=== PATIENT | male | born 1985 | race Caucasian/White ===

== ENCOUNTER 2017-01-23 01:23 | Inpatient (IN) | payer OTHER ==
[~2017-01-23] VITALS: Ht 185.4 cm; Wt 98.1 kg
[~2017-01-23 01:23] MED LIST: BACTRIM,SEPT1 TABLET PO; CEFDINIR300 MG PO; CLONIDINE HCL0.1 MG PO; DESYREL100 MG PO; NAPROSYN500 MG PO; NARCAN4 MG NS; PERCOCET 5/31 TABLET PO; SERTRALINE HCL50 MG PO
[2017-01-23 01:47] LABS: HEMATOCRIT 39.9 % (38.0-50.0); MCH 31.7 PG (29.0-34.0); MCHC 35.1 G/DL (30.0-36.0); MCV 90.3 FL (86-99); MEAN PLAT.VOLUME 10.1 uM^3 (9.0-12.4); PLATELET COUNT 246 K/uL (156-360); RBC DIS.WIDTH-CV 11.5 % (11.8-14.6); RBC DIS.WIDTH-SD 38.3 % (39-53); RED BLOOD COUNT 4.42 M/uL (4.00-5.50); WHITE BLOOD COUNT 7.1 K/uL (4.1-10.2)
[2017-01-23 01:56] LABS: CHLORIDE 103 mEq/L (99-109); POTASSIUM 3.6 mEq/L (3.7-5.4); SODIUM 138 mEq/L (136-147)
[2017-01-23 01:58] LABS: GLUCOSE 85 mg/dL (70-99)
[2017-01-23 01:59] LABS: ANION GAP 13 MEQ/L (2-14)
[2017-01-23 02:01] LABS: SERUM ETHYL ALCOHOL < 10 mg/dL
[2017-01-23 02:02] LABS: GFR ESTIMATE (CALCULATED) > 59 mL/min/
[2017-01-23 02:03] LABS: UREA NITROGEN (BUN) 21 mg/dL (9-23)
[2017-01-23 02:50] LABS: TOTAL BILIRUBIN 0.4 mg/dL (0.0-1.0)
[2017-01-23 02:51] LABS: ALKALINE PHOSPHATASE 51 IU/L (3-129)
[2017-01-23 02:54] LABS: DIRECT BILIRUBIN 0.3 mg/dL (0.0-0.3)
[2017-01-23 02:55] LABS: LIPASE 45 U/L (1.0-51.0)
[2017-01-23 03:09] LABS: SALICYLATE < 5.0 MG/DL (15-30)
[2017-01-23 05:08] VITALS: BP 123/64
[2017-01-23 05:13] VITALS: BP 123/64
[2017-01-23 07:33] VITALS: BP 100/53
[2017-01-23 15:40] VITALS: BP 147/71
[2017-01-23 19:34] VITALS: BP 126/74
[2017-01-23 22:14] VITALS: BP 95/59
[2017-01-24 07:42] VITALS: BP 93/50
[2017-01-24 15:34] VITALS: BP 109/72
[2017-01-25 07:55] VITALS: BP 113/54
[2017-01-25 15:43] VITALS: BP 107/61
[2017-01-26 07:35] VITALS: BP 113/55
[2017-01-26 10:46] VITALS: BP 116/63
[2017-01-26 15:51] VITALS: BP 102/55
[2017-01-27 07:55] VITALS: BP 101/66
[2017-01-27 16:12] VITALS: BP 105/63
[2017-01-28 08:13] VITALS: BP 116/55
[2017-01-28 13:09] VITALS: BP 117/57
[2017-01-28 15:48] VITALS: BP 109/57
[2017-01-29 07:48] VITALS: BP 103/55
[2017-01-29 15:42] VITALS: BP 102/56
[2017-01-30 07:52] VITALS: BP 108/60
[2017-01-30 15:59] VITALS: BP 125/61
[2017-01-31 07:44] VITALS: BP 117/59
[2017-01-31] MEDS ORDERED: SERTRALINE HCL50 MG PO (08:59)
[2017-01-31] MEDS ORDERED: BUSPAR10 MG PO (08:59)
== END 2017-01-31 11:03 | disposition other institution (70) | DRG 885 ==
LOC: EME 01:23 → 1WEST 04:41 → EDOF 04:41 → 1WEST 05:03
DX: F33.2 Major depressive disorder, recurrent severe without psychotic features (principal); R45.851 Suicidal ideations; Z59.0 Homelessness; F11.20 Opioid dependence, uncomplicated; G47.00 Insomnia, unspecified; F41.9 Anxiety disorder, unspecified; F17.200 Nicotine dependence, unspecified, uncomplicated; Z91.5 Personal history of self-harm
CPT/HCPCS: 71020; 80048; 80076; 83690; 85027; 90839; 93005; 97150 GO; 97166 GO; 99281; 99284; G0480; Q0169; Q0177

== ENCOUNTER 2017-02-23 19:02 | Inpatient (IN) | payer OTHER ==
[~2017-02-23] VITALS: Ht 185.4 cm; Wt 93.7 kg
[~2017-02-23 19:02] MED LIST changes: +BUSPAR10 MG PO
[2017-02-23 19:45] LABS: HEMATOCRIT 40.5 % (38.0-50.0); MCH 31.3 PG (29.0-34.0); MCHC 34.3 G/DL (30.0-36.0); MCV 91.2 FL (86-99); MEAN PLAT.VOLUME 9.5 uM^3 (9.0-12.4); PLATELET COUNT 335 K/uL (156-360); RBC DIS.WIDTH-CV 11.7 % (11.8-14.6); RBC DIS.WIDTH-SD 39.2 % (39-53); RED BLOOD COUNT 4.44 M/uL (4.00-5.50); WHITE BLOOD COUNT 9.6 K/uL (4.1-10.2)
[2017-02-23 19:54] LABS: CHLORIDE 105 mEq/L (99-109); POTASSIUM 3.4 mEq/L (3.7-5.4); SODIUM 140 mEq/L (136-147)
[2017-02-23 19:55] LABS: GLUCOSE 135 mg/dL (70-99)
[2017-02-23 19:57] LABS: ANION GAP 11 MEQ/L (2-14)
[2017-02-23 19:59] LABS: GFR ESTIMATE (CALCULATED) > 59 mL/min/; SERUM ETHYL ALCOHOL < 10 mg/dL
[2017-02-23 20:00] LABS: UREA NITROGEN (BUN) 19 mg/dL (9-23)
[2017-02-24 00:21] VITALS: BP 125/76
[2017-02-24 07:22] VITALS: BP 116/56
[2017-02-24 10:28] VITALS: BP 117/64
[2017-02-24 15:15] VITALS: BP 102/54
[2017-02-25 07:31] VITALS: BP 108/58
[2017-02-25] MEDS ORDERED: BUSPAR10 MG PO (09:59)
[2017-02-25] MEDS ORDERED: GABAPENTIN300 MG PO (09:59)
[2017-02-25] MEDS ORDERED: EFFEXOR XR37.5 MG PO (09:59)
== END 2017-02-25 12:16 | disposition other institution (70) | DRG 885 ==
LOC: EME 19:02 → EDOF 21:52 → 1WEST 21:52 → ENRESERV 23:42 → 1WEST 02-24 00:11
DX: F33.9 Major depressive disorder, recurrent, unspecified (principal); F11.23 Opioid dependence with withdrawal; R45.851 Suicidal ideations; F17.200 Nicotine dependence, unspecified, uncomplicated; F41.9 Anxiety disorder, unspecified; Z59.0 Homelessness; Z81.8 Family history of other mental and behavioral disorders; Z91.19 Patient's noncompliance with other medical treatment and regimen; Z91.5 Personal history of self-harm
CPT/HCPCS: 80048; 85027; 90839; 99281; 99285; G0480; Q0177

== ENCOUNTER 2017-10-08 19:16 | Inpatient (IN) | payer OTHER ==
[~2017-10-08] VITALS: Ht 185.4 cm; Wt 97.7 kg
[~2017-10-08 19:16] MED LIST changes: +EFFEXOR XR37.5 MG PO; +GABAPENTIN300 MG PO
[2017-10-08 19:40] LABS: HEMATOCRIT 38.5 % (38.0-50.0); HEMOGLOBIN 13.7 G/DL (12.5-16.6); MCH 31.6 PG (29.0-34.0); MCHC 35.6 G/DL (30.0-36.0); MCV 88.7 FL (86-99); PLATELET COUNT 261 K/uL (156-360); RBC DIS.WIDTH-CV 11.8 % (11.8-14.6); RBC DIS.WIDTH-SD 38.3 % (39-53); RED BLOOD COUNT 4.34 M/uL (4.00-5.50); WHITE BLOOD COUNT 7.4 K/uL (4.1-10.2)
[2017-10-08 19:48] LABS: CHLORIDE 103 mEq/L (99-109); POTASSIUM 4.1 mEq/L (3.7-5.4); SODIUM 136 mEq/L (136-147)
[2017-10-08 19:50] LABS: GLUCOSE 95 mg/dL (70-99)
[2017-10-08 19:54] LABS: GFR ESTIMATE (CALCULATED) > 59 mL/min/ (58.99-99999)
[2017-10-08 19:55] LABS: UREA NITROGEN (BUN) 18 mg/dL (9-23)
[2017-10-08 20:03] LABS: TROP-I INTERPRETATION NEGATIVE; TROPONIN-I < 0.01 ng/mL (0.0-0.30)
[2017-10-08 20:24] LABS: ALBUMIN 4.3 g/dL (3.2-4.8)
[2017-10-08 20:27] LABS: TOTAL PROTEIN 7.7 g/dL (6.4-8.3)
[2017-10-08 20:28] LABS: TOTAL BILIRUBIN 0.6 mg/dL (0.0-1.0)
[2017-10-08 20:30] LABS: ALKALINE PHOSPHATASE 50 IU/L (3-129)
[2017-10-08 20:32] LABS: AST (GOT) 28 IU/L (2-34); DIRECT BILIRUBIN 0.3 mg/dL (0.0-0.3)
[2017-10-08 20:33] LABS: ACETAMINOPHEN (TYLENOL) < 10 mcg/mL (10-30); ALT (GPT) 29 IU/L (3-49)
[2017-10-08 21:06] LABS: AMPHETAMINE NEGATIVE (500 ng/mL); BARBITURATES NEGATIVE (200 ng/mL); BENZODIAZEPINES PRESUMPTIVE POSITIVE (150 ng/mL); BUPRENORPHINE PRESUMPTIVE POSITIVE (10 ng/mL); COCAINE NEGATIVE (150 ng/mL); METHADONE NEGATIVE (200 ng/mL); METHAMPHETAMINE PRESUMPTIVE POSITIVE (500 ng/mL); OPIATES (MORPHINE) PRESUMPTIVE POSITIVE (100 ng/mL); OXYCODONE NEGATIVE (100 ng/mL); PHENCYCLIDINE NEGATIVE (25 ng/mL); PROPOXYPHENE NEGATIVE (300 ng/mL); THC CANNABINOIDS NEGATIVE (50 ng/mL); TRICYCLIC ANTIDEPRESSANTS NEGATIVE (300 ng/mL)
[2017-10-08 21:41] LABS: BENZODIAZEPINES, URINE SCREEN Negative (200 ng/mL)
[2017-10-08] MEDS ORDERED: IBUPROFEN800 MG PO (22:59)
[2017-10-08] MEDS ORDERED: SUBOXONE 8 MG-1 EAC2 SL (23:00)
[2017-10-09 01:19] VITALS: BP 125/69
[2017-10-09 07:35] VITALS: BP 107/55
[2017-10-09 15:38] VITALS: BP 92/55
[2017-10-10 08:49] VITALS: BP 115/61
[2017-10-10 15:36] VITALS: BP 123/70
[2017-10-10] MEDS ORDERED: GABAPENTIN300 MG PO (15:47)
[2017-10-11 08:12] VITALS: BP 102/57
[2017-10-11 15:48] VITALS: BP 126/54
[2017-10-12 07:48] VITALS: BP 112/69
[2017-10-12] MEDS ORDERED: TRAZODONE HCL50 MG PO (09:07)
[2017-10-12] MEDS ORDERED: VENLAFAXINE HCL75 M3 PO (09:07)
[2017-10-12] MEDS ORDERED: GABAPENTIN400 MG PO (09:07)
[2017-10-12] MEDS ORDERED: BUSPAR10 MG PO (09:07)
== END 2017-10-12 14:08 | disposition other institution (70) | DRG 880 ==
LOC: EME → EDBD 19:16 → EME 19:16 → 1WEST 22:28 → EDOF 22:28 → 1WEST 10-09 00:15
PROVIDERS: Emergency Medicine Emergency Medical Services
PROC: HZ2ZZZZ Detoxification Services for Substance Abuse Treatment (ICD-10-PCS; principal; 2017-10-08)
DX: F41.8 Other specified anxiety disorders (principal); F11.23 Opioid dependence with withdrawal; R45.851 Suicidal ideations; R07.9 Chest pain, unspecified; F17.200 Nicotine dependence, unspecified, uncomplicated; Z91.5 Personal history of self-harm; Z59.0 Homelessness; Z81.8 Family history of other mental and behavioral disorders
CPT/HCPCS: 71046; 80048; 80076; 84484; 84999; 85027; 90839; 93005; 99281; 99285; G0480; Q0177